=== PATIENT | male | born 1945 | race American Indian/Alaskan Native ===

== ENCOUNTER 2017-06-25 20:05 | Emergency (ER) | payer MEDICARE, OTHER ==
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
[2017-06-25 20:50] LABS: Basophils % (Auto) 0.7 % (0.0-1.8); Eosinophils % (Auto) 6.5 % (0.0-4.3); Hematocrit 44.3 % (35.5-45.6); Hemoglobin 14.7 gm/dl (11.8-15.2); Mean Corpuscular HGB Conc 33 % (32-34); Mean Corpuscular Hemoglobin 27 pg (28-32); Mean Corpuscular Volume 81 fl (84-94); Platelet Count 127 K/mm3 (140-440); Red Blood Count 5.49 M/mm3 (3.65-5.03); Red Cell Distribution Width 13.4 % (13.2-15.2); White Blood Count 7.4 K/mm3 (4.5-11.0)
[2017-06-25 21:00] LABS: INR 0.99 (0.87-1.13)
--- NOTE | 2017-06-25 21:03 | Cat Scan Report ---
FINAL REPORT EXAM: CT HEAD/BRAIN WO CON HISTORY: neuro deficits \T\lt; 6hrs or sx present upon awakening TECHNIQUE: Noncontrast CT axial images of the brain. PRIORS: None. FINDINGS: No parenchymal mass, mass effect, hemorrhage, midline shift or hydrocephalus. No evidence of acute cortical infarct. No abnormal, extra-axial fluid or air collection. Mild, patchy low density in the periventricular and subcortical white matter is nonspecific, but may relate to chronic small vessel ischemic change. Age-related volume loss. Osseous calvarium grossly intact. IMPRESSION: 1. No acute intracranial findings. 2. Chronic ischemic and atrophic changes.
[2017-06-25 21:05] LABS: Anion Gap 16 mmol/L; BUN/Creatinine Ratio 15; Blood Urea Nitrogen 17 mg/dL (9-20); Calcium 9.2 mg/dL (8.4-10.2); Carbon Dioxide 25 mmol/L (22-30); Chloride 100.1 mmol/L (98-107); Glucose 145 mg/dL (75-100); Partial Thromboplastin Time 28.1 Sec. (24.2-36.6); Sodium 137 mmol/L (137-145)
[2017-06-25 22:31] LABS: Creatine Kinase MB 2.4 ng/mL (0.0-4.0)
[2017-06-25 22:32] LABS: Creatine Kinase 101 units/L (55-170)
[2017-06-25] MEDS ORDERED: NACL 0.9% 500 ML 500 ML IV ONE (22:47)
[2017-06-25] MEDS ORDERED: ASPIRIN ONE (23:18)
[2017-06-26] MEDS ORDERED: ASPIRIN PO ONE (00:25)
[2017-06-26] MEDS ORDERED: BABY ASPIRIN PO ONE (00:40)
[2017-06-26 01:26] VITALS: BP 100/72
== END 2017-06-26 01:05 | disposition admitted as inpatient to this hospital (09) ==
LOC: ED 20:05
DX: I63.9 Cerebral infarction, unspecified (principal); I95.0 Idiopathic hypotension; I10 Essential (primary) hypertension; E11.9 Type 2 diabetes mellitus without complications; Z88.8 Allergy status to other drugs, medicaments and biological substances; V76 Bus occupant injured in collision with other nonmotor vehicle; Y93.89 Activity, other specified; Y92.89 Other specified places as the place of occurrence of the external cause; Y99.8 Other external cause status
CPT/HCPCS: 36415; 70450; 80048; 82550; 82553; 82962; 84484; 85025; 85610; 85670; 85730; 93005; 93010

== ENCOUNTER 2018-02-21 21:21 | Inpatient (IN) | payer MEDICARE, OTHER ==
[2018-02-21] MEDS ORDERED: NACL 0.9% 250ML 250 ML IV ONE (22:10)
--- NOTE | 2018-02-21 22:17 | Emergency Department Report ---
ED Neuro Deficit HPI - General Chief Complaint: Neuro Symptoms/Deficit Stated Complaint: GENERAL ILLNESS Time Seen by Provider: 02/21/18 22:01 Source: patient, EMS (ems notes not available at time of chart dictation), RN notes reviewed, old records reviewed Mode of arrival: Stretcher Limitations: Physical Limitation - History of Present Illness Initial Comments: This is a 72-year-old male, known to this provider previously, has a past medical history of thrombocytopenia, diabetes, bradycardia, hypertension, right MCA territory stroke, chronic left-sided weakness, currently on xarelto The patient presents to the ER with a complaint of not feeling well. He is not sure what time it started. He is not sure if this started at 4:00 PM or 8:00 PM today. He reports nausea, weakness, abdominal cramping, and binocular loss of vision. His symptoms are constant, and he did not have exacerbating or relieving factors. -: Gradual Location: other (as per history of present illness) Severity: moderate Quality: weak Improves With: none Worsens With: time On Anticoagulants: Yes Associated Symptoms: confusion, loss of appetite, malise, nausea/vomiting, weakness. denies: chest pain, cough, diaphoresis - Related Data Home Medications: Previous Rx's Medication Instructions Recorded Last Taken Type Clopidogrel [Plavix] 75 mg PO QDAY #30 tablet 06/29/17 Unknown Rx Simvastatin [Zocor TAB] 20 mg PO QHS #30 tablet 06/29/17 Unknown Rx Allergies/Adverse Reactions: Allergies Allergy/AdvReac Type Severity Reaction Status Date / Time iodine AdvReac Unknown Verified 06/26/17 09:37 ED Review of Systems ROS: Stated complaint: GENERAL ILLNESS Other details as noted in HPI Comment: Unobtainable due to pts medical conditions Constitutional: malaise Eyes: vision change ENT: denies: epistaxis Respiratory: denies: cough Cardiovascular: denies: chest pain Gastrointestinal: abdominal pain Genitourinary: denies: dysuria Neurological: weakness, confusion ED Past Medical Hx - Past Medical History Previous Medical History?: Yes Hx Hypertension: Yes Hx CVA: Yes Hx Diabetes: Yes - Surgical History Past Surgical History?: Yes Hx Coronary Stent: Yes Additional Surgical History: Right leg, cardiac stent - Social History Smoking Status: Never Smoker Substance Use Type: None - Medications Home Medications: Home Medications Medication Instructions Recorded Confirmed Last Taken Type Clopidogrel [Plavix] 75 mg PO QDAY #30 tablet 06/29/17 Unknown Rx Simvastatin [Zocor TAB] 20 mg PO QHS #30 tablet 06/29/17 Unknown Rx ED Neuro Physical Exam - General Limitations: No Limitations, Physical Limitation General appearance: alert, in no apparent distress Suspected Stroke: Yes - Head Head exam: Present: atraumatic, normocephalic - Eye Eye exam: Present: normal appearance, PERRL, other (extraocular movements are intact in the left eye. The right eye can adduct, elevate, depress, and the patient can abduction of right eye to midline, but not past midline.). Absent: nystagmus - ENT ENT exam: Present: mucous membranes moist - Neck Neck exam: Present: normal inspection, full ROM. Absent: tenderness, meningismus - Respiratory Respiratory exam: Present: normal lung sounds bilaterally. Absent: respiratory distress - Cardiovascular Cardiovascular Exam: Present: normal rhythm, irregular rhythm, normal heart sounds. Absent: systolic murmur, diastolic murmur, rubs, gallop - GI/Abdominal GI/Abdominal exam: Present: soft, normal bowel sounds. Absent: distended, tenderness, guarding, rebound, rigid, pulsatile mass - Rectal Rectal exam: Present: deferred - Extremities Exam Extremities exam: Present: normal inspection, full ROM, normal capillary refill. Absent: pedal edema, joint swelling, calf tenderness - Back Exam Back exam: Present: normal inspection, full ROM. Absent: tenderness, CVA tenderness (R), paraspinal tenderness, vertebral tenderness - Neurological Exam Neurological exam: Present: alert, oriented X3, motor sensory deficit (there is 4-5 strength left upper, left lower extremity sensation is intact to light touch in the bilateral upper, lower extremities. There is 5 out of 5 strength right upper, right lower extremity.). Absent: CN II-XII intact (there is no facial droop. The tongue is midline. Left-sided extraocular movements are intact bilaterally. Shoulder shrug is intact bilaterally. Normal symmetric elevation of the palate.) - NIHSS Assessment Interval: Baseline 1a. Level of Consciousness: alert 1b. LOC Questions: answers correctly 1c. LOC Commands: performs tasks correctly 2. Best Gaze: partial gaze palsy 3. Visual: no visual loss 4. Facial Palsy: normal symmetrical movement 5b. Motor Arm Right: no drift 5a. Motor Arm Left: no drift 6a. Motor Leg Left: no drift 6b. Motor Leg Right: no drift 7. Limb Ataxia: absent 8. Sensory: normal 9. Best Language: no aphasia 10. Dysarthria: normal 11. Extinction/Inattention: visual/tactile inattention Total Score: 2 Stroke Severity: Minor Stroke - Psychiatric Psychiatric exam: Present: anxious - Skin Skin exam: Present: warm, dry, intact, normal color. Absent: rash ED Course Vital Signs 02/21/18 02/21/18 02/21/18 21:50 22:00 22:15 Temperature 98.2 F 98.4 F Pulse Rate 65 77 76 Respiratory 20 20 20 Rate Blood Pressure 188/92 Blood Pressure 188/92 181/74 [Left] O2 Sat by Pulse 100 99 98 Oximetry 02/21/18 02/21/18 02/21/18 23:00 23:15 23:45 Temperature Pulse Rate 72 72 61 Respiratory 16 16 16 Rate Blood Pressure Blood Pressure 158/95 158/95 150/87 [Left] O2 Sat by Pulse 97 97 96 Oximetry - Reevaluation(s) Reevaluation #1: 02/21/18 23:07 Differential diagnosis, including but not limited to: Subacute stroke, thrombosis, dissection, partial seizure, pneumonia, urinary tract infection Assessment and plan: 72-year-old male presenting with an initial complaint of not feeling well and nonspecific visual disturbance. His timeline is erratic. He thinks that his symptoms started at 8:00 on my interview. However, he was seen by consulting stroke neurology, Dr. Blanton, and he told Dr. Blanton that his symptoms started at 4:00. The patient presented more than 4.5 hours after the 4:00 window, and is therefore not TPA candidate. In addition, given the patient's unreliability of historical onset of symptoms, he is also excluded from TPA. Furthermore, while in CAT scan he is reported to have a seizure, and then after CAT scan, under my direct supervision, had nonspecific left-sided myoclonic jerking, and a left-sided gaze preference, suggestive of a partial seizure. He then informed nursing staff and consult neurology Dr. Blanton that he has a history of seizures and takes Keppra. Consult neurology recommends emergent CT angiogram of the head and neck to exclude arterial disease. Patient having active partial seizures at this time, and therefore requires a emergent study. He will be given Ativan 2, Keppra IV 1, and we will reassess. Urinalysis x- ray of the chest are pending at this time. 02/21/18 23:08 Reevaluation #2: 02/21/18 23:41 Still having eye twitching and myoclonic jerks. Symptoms terminated with 5 mg of Versed. Angiogram is pending. Reevaluation #3: 02/22/18 02:04 The patient has been reassessed multiple times after Versed administration. No additional myoclonic jerks have been noted. No clonic jerking has been noted of the eyes. The angiogram did not demonstrate any significant arterial disease that would require transfer for endovascular intervention or neurosurgical consultation. Patient is still postictal and sleepy. He will be given rectal aspirin. Case was presented to the Hospital physician, Dr. Quinn, she accepted the patient to the medical service. - Lab Data Result diagrams: 02/21/18 22:21 02/21/18 22:21 Lab Results 02/21/18 02/21/18 02/21/18 Range/Units 22:17 22:21 22:21 WBC 7.7 (4.5-11.0) K/mm3 RBC 4.71 (3.65-5.03) M/mm3 Hgb 12.7 (11.8-15.2) gm/dl Hct 38.7 (35.5-45.6) % MCV 82 L (84-94) fl MCH 27 L (28-32) pg MCHC 33 (32-34) % RDW 14.2 (13.2-15.2) % Plt Count 107 L (140-440) K/mm3 Lymph % (Auto) 17.3 (13.4-35.0) % [place] % (Auto) 7.7 H (0.0-7.3) % Eos % (Auto) 3.4 (0.0-4.3) % Baso % (Auto) 1.3 (0.0-1.8) % Lymph # 1.3 (1.2-5.4) K/mm3 [place] # 0.6 (0.0-0.8) K/mm3 Eos # 0.3 (0.0-0.4) K/mm3 Baso # 0.1 (0.0-0.1) K/mm3 Seg Neutrophils % 70.3 H (40.0-70.0) % Seg Neutrophils # 5.4 (1.8-7.7) K/mm3 PT 13.7 (12.2-14.9) Sec. INR 1.00 (0.87-1.13) APTT 26.9 (24.2-36.6) Sec. Thrombin Time 16.5 (15.1-19.6) Sec. Sodium (137-145) mmol/L Potassium (3.6-5.0) mmol/L Chloride (98-107) mmol/L Carbon Dioxide (22-30) mmol/L Anion Gap mmol/L BUN (9-20) mg/dL Creatinine (0.8-1.5) mg/dL Estimated GFR ml/min BUN/Creatinine Ratio % Glucose (75-100) mg/dL POC Glucose 100 (70-105) Calcium (8.4-10.2) mg/dL Total Bilirubin (0.1-1.2) mg/dL AST (5-40) units/L ALT (7-56) units/L Alkaline Phosphatase (35-129) units/L Total Creatine Kinase (55-170) units/L CK-MB (CK-2) (0.0-4.0) ng/mL CK-MB (CK-2) Rel Index (0-4) Troponin T (0.00-0.029) ng/mL Total Protein (6.3-8.2) g/dL Albumin (3.9-5) g/dL Albumin/Globulin Ratio % Urine Color (Yellow) Urine Turbidity (Clear) Urine pH (5.0-7.0) Ur Specific [place] (1.003-1.030) Urine Protein (Negative) mg/dL Urine Glucose (UA) (Negative) mg/dL Urine Ketones (Negative) mg/dL Urine Blood (Negative) Urine Nitrite (Negative) Urine Bilirubin (Negative) Urine Urobilinogen (<2.0) mg/dL Ur Leukocyte Esterase (Negative) Urine WBC (Auto) (0.0-6.0) /HPF Urine RBC (Auto) (0.0-6.0) /HPF Urine Opiates Screen Urine Methadone Screen Ur Barbiturates Screen Ur Phencyclidine Scrn Ur Amphetamines Screen U Benzodiazepines Scrn Urine Cocaine Screen U Marijuana (THC) Screen Drugs of Abuse Note 02/21/18 02/21/18 02/21/18 Range/Units 22:21 23:51 23:51 WBC (4.5-11.0) K/mm3 RBC (3.65-5.03) M/mm3 Hgb (11.8-15.2) gm/dl Hct (35.5-45.6) % MCV (84-94) fl MCH (28-32) pg MCHC (32-34) % RDW (13.2-15.2) % Plt Count (140-440) K/mm3 Lymph % (Auto) (13.4-35.0) % [place] % (Auto) (0.0-7.3) % Eos % (Auto) (0.0-4.3) % Baso % (Auto) (0.0-1.8) % Lymph # (1.2-5.4) K/mm3 [place] # (0.0-0.8) K/mm3 Eos # (0.0-0.4) K/mm3 Baso # (0.0-0.1) K/mm3 Seg Neutrophils % (40.0-70.0) % Seg Neutrophils # (1.8-7.7) K/mm3 PT (12.2-14.9) Sec. INR (0.87-1.13) APTT (24.2-36.6) Sec. Thrombin Time (15.1-19.6) Sec. Sodium 138 (137-145) mmol/L Potassium 3.6 (3.6-5.0) mmol/L Chloride 100.4 (98-107) mmol/L Carbon Dioxide 26 (22-30) mmol/L Anion Gap 15 mmol/L BUN 5 L (9-20) mg/dL Creatinine 0.7 L (0.8-1.5) mg/dL Estimated GFR > 60 ml/min BUN/Creatinine Ratio 7 % Glucose 95 (75-100) mg/dL POC Glucose (70-105) Calcium 8.8 (8.4-10.2) mg/dL Total Bilirubin 0.30 (0.1-1.2) mg/dL AST 20 (5-40) units/L ALT 14 (7-56) units/L Alkaline Phosphatase 51 (35-129) units/L Total Creatine Kinase 59 (55-170) units/L CK-MB (CK-2) 1.5 (0.0-4.0) ng/mL CK-MB (CK-2) Rel Index 2.5 (0-4) Troponin T < 0.010 (0.00-0.029) ng/mL Total Protein 6.8 (6.3-8.2) g/dL Albumin 3.8 L (3.9-5) g/dL Albumin/Globulin Ratio 1.3 % Urine Color Straw (Yellow) Urine Turbidity Clear (Clear) Urine pH 7.0 (5.0-7.0) Ur Specific [place] 1.006 (1.003-1.030) Urine Protein <15 mg/dl (Negative) mg/dL Urine Glucose (UA) Neg (Negative) mg/dL Urine Ketones Neg (Negative) mg/dL Urine Blood Neg (Negative) Urine Nitrite Neg (Negative) Urine Bilirubin Neg (Negative) Urine Urobilinogen < 2.0 (<2.0) mg/dL Ur Leukocyte Esterase Neg (Negative) Urine WBC (Auto) < 1.0 (0.0-6.0) /HPF Urine RBC (Auto) < 1.0 (0.0-6.0) /HPF Urine Opiates Screen Presumptive negative Urine Methadone Screen Presumptive negative Ur Barbiturates Screen Presumptive negative Ur Phencyclidine Scrn Presumptive negative Ur Amphetamines Screen Presumptive negative U Benzodiazepines Scrn Presumptive negative Urine Cocaine Screen Presumptive negative U Marijuana (THC) Screen Presumptive negative Drugs of Abuse Note Disclamer - EKG Data -: EKG Interpreted by Ok 02/21/18 23:10 EKG shows sinus bradycardia, premature ventricular contractions, left axis, low voltage, abnormal EKG, not a STEMI, multiple premature ventricular contractions. - Radiology Data Radiology results: report reviewed - Core Measures Measure Exclusions: not indicated - Thrombolytic Inclusion/Exclusion Thrombolytic Exclusion Criteria: Symptom Onset > 3 Hours Critical Care Time: Yes Critical care time in (mins) excluding proc time.: 60 Critical care attestation.: If time is entered above; I have spent that time in minutes in the direct care of this critically ill patient, excluding procedure time. ED Disposition Clinical Impression: Visual disturbance, Partial seizure Disposition: [id number] OP ADMIT IP TO THIS HOSP Is pt being admited?: Yes Does the pt Need Aspirin: Yes Condition: Critical Referrals: PRIMARY CARE, [Primary Care Provider] - 3-5 Days
[2018-02-21 22:27] LABS: Basophils # (Auto) 0.1 K/mm3 (0.0-0.1); Basophils % (Auto) 1.3 % (0.0-1.8); Eosinophils # (Auto) 0.3 K/mm3 (0.0-0.4); Eosinophils % (Auto) 3.4 % (0.0-4.3); Hematocrit 38.7 % (35.5-45.6); Hemoglobin 12.7 gm/dl (11.8-15.2); Lymphocytes # (Auto) 1.3 K/mm3 (1.2-5.4); Lymphocytes % (Auto) 17.3 % (13.4-35.0); Mean Corpuscular HGB Conc 33 % (32-34); Mean Corpuscular Hemoglobin 27 pg (28-32); Mean Corpuscular Volume 82 fl (84-94); Monocytes # (Auto) 0.6 K/mm3 (0.0-0.8); Monocytes % (Auto) 7.7 % (0.0-7.3); Red Blood Count 4.71 M/mm3 (3.65-5.03); Red Cell Distribution Width 14.2 % (13.2-15.2)
[2018-02-21 22:30] LABS: Platelet Count 107 K/mm3 (140-440)
[2018-02-21 22:38] LABS: Partial Thromboplastin Time 26.9 Sec. (24.2-36.6); Thrombin Time 16.5 Sec. (15.1-19.6)
--- NOTE | 2018-02-21 22:41 | Cat Scan Report ---
FINAL REPORT PROCEDURE: CT HEAD/BRAIN WO CON TECHNIQUE: Computerized tomography of the head was performed without contrast material. HISTORY: Stroke symptoms COMPARISON: 06/25/2017 FINDINGS: Skull and scalp: Normal. Paranasal sinuses: Normal. Ventricles and subarachnoid spaces: Normal. Cerebrum: There is no evidence of an acute intracranial hemorrhage, hematoma, infarction, midline displacement or mass. There is an area of hypoattenuation identified in the right temporal lobe consistent with old infarction. Mild atrophy and slight periventricular deep white matter changes are noted.. Cerebellum and brainstem: No evidence of hemorrhage, acute infarction or mass. Vasculature: Normal. Comments: None. IMPRESSION: There is no evidence of an acute intracranial process. Area of encephalomalacia and old infarction in the right temporal lobe. Mild atrophy and slight periventricular deep white matter change.
[2018-02-21] MEDS ORDERED: ATIVAN ONE ×2 (22:49→22:59)
[2018-02-21 22:55] LABS: Creatine Kinase MB 1.5 ng/mL (0.0-4.0)
[2018-02-21 22:56] LABS: Alanine Aminotransferase 14 units/L (7-56); Albumin 3.8 g/dL (3.9-5); BUN/Creatinine Ratio 7; Blood Urea Nitrogen 5 mg/dL (9-20); Calcium 8.8 mg/dL (8.4-10.2); Hemolysis Index 10
[2018-02-21] MEDS ORDERED: KEPPRA 1,000 MG/NS 0.75% 100ML 1,000 MG/100 ML BAG IV ONE ×2 (22:59→23:01)
[2018-02-21] MEDS ORDERED: CARDENE 50 MG in NACL 0.9% 250ML 230 ML IV SCH (23:00)
[2018-02-21] MEDS ORDERED: ATIVAN IV ONE (23:01)
[2018-02-21] MEDS ORDERED: VERSED IV ONE (23:23)
[2018-02-21] MEDS ORDERED: VERSED IV NR (23:45)
[2018-02-22 00:10] LABS: Bilirubin,Urine NEG (Negative); Blood,Urine NEG (Negative); Color,Urine Straw (Yellow); Protein,Urine <15 mg/dL mg/dL (Negative); RBC,Urine < 1.0 /HPF (0.0-6.0); Urobilinogen,Urine < 2.0 mg/dL (<2.0); WBC,Urine < 1.0 /HPF (0.0-6.0)
--- NOTE | 2018-02-22 00:11 | XRay Report ---
FINAL REPORT PROCEDURE: XR CHEST 1V AP TECHNIQUE: Chest radiograph anteroposterior view. CPT 32861 HISTORY: sz ? pneumonia COMPARISON: No prior studies are available for comparison. FINDINGS: Heart: Normal. Mediastinum/Vessels: Normal. Lungs/Pleural space: Normal. Bony thorax: No acute osseous abnormality. Life support devices: None. IMPRESSION: No acute cardiopulmonary abnormality.
[2018-02-22 00:20] LABS: Amphetamine Screen,Urine PRESUMPTIVE NEGATIVE; Benzodiazepines Screen,Urine PRESUMPTIVE NEGATIVE; Cannabinoid Screen,Urine PRESUMPTIVE NEGATIVE; Cocaine Screen,Urine PRESUMPTIVE NEGATIVE; Methadone Screen,Urine PRESUMPTIVE NEGATIVE; Opiate Screen,Urine PRESUMPTIVE NEGATIVE
--- NOTE | 2018-02-22 01:45 | Cat Scan Report ---
FINAL REPORT PROCEDURE: CT ANGIO HEAD TECHNIQUE: Computerized tomographic angiography of the head was performed after the IV injection of iodinated nonionic contrast including image processing. The image data was postprocessed using 2-dimensional multiplanar reformatted (MPR) and 3-dimensional (MIP and/or volume rendered) techniques. HISTORY: stroke sx COMPARISON: No prior studies are available for comparison. FINDINGS: Cerebrum: There is evidence of an area of encephalomalacia in the right temporal lobe most consistent with previous infarction. No acute intracranial process. Minimal atrophy is noted. Cerebellum: No evidence of hemorrhage, acute ischemia or mass. Subarachnoid spaces and ventricles: Normal. Intracranial vessels: Carotid siphon: Normal. Anterior cerebral: Normal. Middle cerebral: Normal. Posterior cerebral:Normal. Vertebral arteries including basilar: The left vertebral artery is dominant. This is a normal variant. Aneurysms: None. Dural sinuses: Normal. IMPRESSION: There is an old infarction in the right temporal lobe. No evidence of an acute intracranial process. Mild atrophy is noted. The left vertebral artery is dominant, this is a normal variant. The remainder of the vasculature is normal.
--- NOTE | 2018-02-22 01:48 | Cat Scan Report ---
FINAL REPORT PROCEDURE: CT ANGIO NECK TECHNIQUE: Computerized tomographic angiography of the neck was performed after the IV injection of iodinated nonionic contrast including image processing. The image data was postprocessed using 2-dimensional multiplanar reformatted (MPR) and 3-dimensional (MIP and/or volume rendered) techniques. HISTORY: stroke sx COMPARISON: No prior studies are available for comparison. Note: Assessment of carotid artery stenosis is based on measurement of the distal internal carotid artery diameter as the denominator for stenosis calculations and the [place] Symptomatic Carotid Endarterectomy Trial (NASCET) stenosis criteria . CPT 3100F FINDINGS: Sinuses: Normal . Non vascular cervical structures: No significant abnormality . Aortic arch: Normal . Right carotid artery: Normal . Left carotid artery: Normal . Vertebral arteries: The left vertebral artery is dominant. This is a normal variant.. IMPRESSION: Normal Examination
[2018-02-22] MEDS ORDERED: ASPIRIN PR ONE (02:05)
[2018-02-22] MEDS ORDERED: SODIUM CHLORIDE FLUSH SYRINGE 10 ML IV PRN (03:00)
[2018-02-22] MEDS ORDERED: ZOFRAN IV PRN (03:00)
[2018-02-22] MEDS ORDERED: TYLENOL PO PRN ×2 (03:00→03:05)
--- NOTE | 2018-02-22 03:02 | History and Physical Report ---
History of Present Illness Date of examination: 02/22/18 History of present illness: 72 year old man with history of CVA, seizure, hypertension, diabetes comes to the ER for evaluation of vision loss per the ER doctor. The patient came in as a code stroke and after CT head, he was noted to have a seizure. he was given 4mg ativan and 5 mg versed. he is now sedated. A review of system is unobtainable PAST MEDICAL HISTORY: CVA, seizure, hypertension, diabetes PAST SURGICAL HISTORY: Unknown SOCIAL HISTORY: Unknown FAMILY HISTORY: Unknown Medications and Allergies Allergies Allergy/AdvReac Type Severity Reaction Status Date / Time iodine AdvReac Unknown Verified 06/26/17 09:37 Home Medications Medication Instructions Recorded Confirmed Last Taken Type Aspirin [Adult Low Dose Aspirin EC] 81 mg PO DAILY #30 tablet. 02/23/18 Unknown Rx Pantoprazole [Protonix TAB] 40 mg PO QDAY #30 tablet 02/23/18 Unknown Rx Rivaroxaban [Xarelto] 10 mg PO QDAY #30 tab 02/23/18 Unknown Rx Simvastatin [Zocor TAB] 40 mg PO QHS #30 tablet 02/23/18 02/22/18 Unknown Rx levETIRAcetam [Keppra TAB] 750 mg PO BID #60 tablet 02/23/18 Unknown Rx Active Meds: Active Medications Midazolam HCl (Versed) 5 mg IV ONCE NR Stop: 02/22/18 23:44 Last Admin: 02/22/18 00:00 Dose: 5 mg Exam - Physical Exam Narrative exam: Gen. appearance: Patient lying in bed, no apparent distress HEENT: Normocephalic, atraumatic, pupils equally round and reactive to light, unable to do extraocular movement , and no sclericterus,. No JVD or thyromegaly or nodule,neck supple, no carotid bruit ,mucous membranes moist, unable to examine oral cavity Heart: S1, S2, regular rate and rhythm Lungs: Wheezing auscultation bilaterally, breathing comfortable Abdomen: Positive bowel sounds, soft, nondistended, no organomegaly Extremity: No edema, no cyanosis, clubbing Skin: No rash, nodules, warm, dry Neuro: sedated - Constitutional Vitals: Temp Pulse Resp BP Pulse Ox 98.4 F 52 L 11 L 154/79 100 02/21/18 22:00 02/22/18 02:15 02/22/18 02:15 02/22/18 02:15 02/22/18 02:15 Results - Labs CBC & Chem 7: 02/23/18 12:50 02/23/18 04:54 Labs: Abnormal lab results 02/21/18 02/21/18 Range/Units 22:21 22:21 MCV 82 L (84-94) fl MCH 27 L (28-32) pg Plt Count 107 L (140-440) K/mm3 [place] % (Auto) 7.7 H (0.0-7.3) % Seg Neutrophils % 70.3 H (40.0-70.0) % BUN 5 L (9-20) mg/dL Creatinine 0.7 L (0.8-1.5) mg/dL Albumin 3.8 L (3.9-5) g/dL - Imaging and Cardiology Chest x-ray: report reviewed CT Scan - head: report reviewed Assessment and Plan CTA head and neck reviewed Assessment CVA, acute seizue, acute on chronic Hypertension Diabetes Thrombocytopenia Plan Admit to medicine Obatain MR of head, echo Do neurochecks, check fingersticks Consult neurology, PT/OT IV ativan as needed for seizure Start plavix, statin, DVT prophalaxis
[2018-02-22] MEDS ORDERED: DULCOLAX PR PRN (03:05)
[2018-02-22] MEDS ORDERED: SODIUM CHLORIDE FLUSH SYRINGE 10 ML INJ PRN (03:05)
[2018-02-22] MEDS ORDERED: MILK OF MAGNESIA PO PRN (03:05)
[2018-02-22] MEDS ORDERED: ATIVAN IV PRN (04:40)
[2018-02-22] MEDS: ASPIRIN PO SCH (09:56)
[2018-02-22] MEDS: PLAVIX PO SCH (09:56)
[2018-02-22] MEDS ORDERED: LOVENOX SUB-Q SCH (10:00)
--- NOTE | 2018-02-22 10:57 | Consultation ---
History of Present Illness Consult date: 02/22/18 Requesting physician: VALERIO BARBER Reason for Consult: CVA and seizure. Chief complaint: Blurry vision and seizure. History of present illness: 72-year-old male, right handed male with a past medical history of thrombocytopenia, diabetes, bradycardia, hypertension, right MCA territory stroke, chronic left-sided weakness. The patient presents to the ER with a complaint of not feeling well. He is not sure what time it started He reports nausea, weakness, abdominal cramping, and binocular loss of vision. His symptoms are constant, and he did not have exacerbating or relieving factors. When he was in the ER, he developed a seizure. Ativan was given and right now he is still effects of Ativan, not fully oriented. 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 He was diagnosed seizure 2 months ago. So far 2-3 seizures. It is unclear what type seizure he has. Only seizure medicine he used was keppra. Past History Past Medical History: diabetes, hypertension, hyperlipidemia, seizures, stroke Social history: no significant social history Family history: hypertension Medications and Allergies Allergies Allergy/AdvReac Type Severity Reaction Status Date / Time iodine AdvReac Unknown Verified 06/26/17 09:37 Home Medications Medication Instructions Recorded Confirmed Last Taken Type Clopidogrel [Plavix] 75 mg PO QDAY #30 tablet 06/29/17 Unknown Rx Simvastatin [Zocor TAB] 20 mg PO QHS #30 tablet 06/29/17 Unknown Rx Active Meds: Active Medications Acetaminophen (Tylenol) 650 mg PO Q4H PRN PRN Reason: Pain MILD(1-3)/Fever >100.5/JULIEN Aspirin (Aspirin) 325 mg PO QDAY ZACH Bisacodyl (Dulcolax) 10 mg AR QDAY PRN PRN Reason: Constipation Clopidogrel Bisulfate (Plavix) 75 mg PO QDAY ZACH Lorazepam (Ativan) 2 mg IV Q4H PRN PRN Reason: Seizures Magnesium Hydroxide (Milk Of Magnesia) 30 ml PO Q4H PRN PRN Reason: Constipation Midazolam HCl (Versed) 5 mg IV ONCE NR Stop: 02/22/18 23:44 Last Admin: 02/22/18 00:00 Dose: 5 mg Ondansetron HCl (Zofran) 4 mg IV Q8H PRN PRN Reason: Nausea And Vomiting Pravastatin Sodium (Pravachol) 40 mg PO QHS ZACH Sodium Chloride (Sodium Chloride Flush Syringe 10 Ml) 10 ml IV BID ZACH Sodium Chloride (Sodium Chloride Flush Syringe 10 Ml) 10 ml IV PRN PRN PRN Reason: LINE FLUSH Review of Systems ROS unobtainable: due to mental status (Given Ativan when having seizure.) Physical Examination - Vital Signs Vital Signs: Vital Signs BP Pulse Ox 188/92 99 02/21/18 21:35 02/21/18 21:35 - Constitutional General appearance: comfortable - EENT EENT: Present: ATNC, PERRL - Respiratory Respiratory: Present: lungs clear, normal breath sounds - Cardiovascular Cardiovascular: Present: regular rate, no murmurs Extremities: Present: no peripheral edema bilatateraly, no clubbing, cyanosis - Gastrointestinal Gastrointestinal: Present: normoactive bowel sounds, soft - Integumentary Integumentary: Present: normal - Neurologic Cranial nerve examination: PERRL, EOMI, tongue midline, intact Speech examination: intact Sensorimotor examination: seizure Detailed motor examination: grossly full strength in Detailed sensory examination: intact Reflexes: 1+: ankle, bicep, knee, tricep - Psychiatric Psychiatric: Present: mood/affect appropriate - Assessment Assessment Interval: Baseline - Level of Consciousness 1a. Level of Consciousness: alert - LOC Questions 1b. LOC Questions: answers correctly - LOC Command 1c. LOC Commands: performs tasks correctly - Best Gaze 2. Best Gaze: partial gaze palsy - Visual 3. Visual: no visual loss - Facial Palsy 4. Facial Palsy: normal symmetrical movement - Motor Arm 5b. Motor Arm Right: no drift - Motor Leg 6a. Motor Leg Left: no drift - Limb Ataxia 7. Limb Ataxia: absent - Sensory 8. Sensory: normal - Best Language 9. Best Language: no aphasia - Dysarthria 10. Dysarthria: normal - Extinction and Inattention 11. Extinction/Inattention: visual/tactile inattention Results - Laboratory Findings CBC and BMP: 02/21/18 22:21 02/21/18 22:21 Abnormal Lab Findings: Abnormal Labs 02/21/18 02/21/18 22:21 22:21 MCV 82 L MCH 27 L Plt Count [address] [place] % (Auto) 7.7 H Seg Neutrophils % 70.3 H BUN 5 L Creatinine 0.7 L Albumin 3.8 L Assessment and Plan 1. H/O seizure and seizure break through. Continue Keppra. Ativan PRN. 2. New CVA as differential. Brain MRI without contrast. 3. Per ER physician, he has thrombocytopenia and on xarelto. Need previous medical information. 4. HTN. Permissive if less 180/105 until brain MRI clear or 48 hours. 5. Dyslipidemia. Statin. 6. DM. Medicine. 7. Don't drive a vehicle or operate heavy machinery for 6 months. Always seizure precaution. 8. Treat risk factors of CVA. If he was on Xarelto, continue Xarelto, D/C Plavix. Right now he is on Plavix. Platelet 107. 9. Plan discussed with him, his brother and hospitalist at bed side. 10. Will follow up with you. 11. If D/C, F/U with neurology in 4-6 weeks.
--- NOTE | 2018-02-22 14:17 | Event Note ---
Date: 02/22/18 Patient seen and examined this morning very lethargic and still sleepy was difficult to arouse. Neurology evaluated her this morning also. Most information obtained from family member was at bedside specifically brother who could not unfortunately provide much information. We'll continue current treatment await MRI and anticipate discharge in a.m. if remains stable.
--- NOTE | 2018-02-22 18:46 | Magnetic Resonance Report ---
FINAL REPORT EXAM: MR BRAIN WO CON HISTORY: stroke TECHNIQUE: Multiplanar multisequence noncontrast MR images of the brain were performed. Comparison: CT brain 02/21/2018 demonstrating right temporal encephalomalacia 6 defect, CT angio 02/22/2018 head and neck which were both normal FINDINGS: There is an old right encephalomalacia sick defect. There is no focal acute restricted diffusion. Sagittal FLAIR images demonstrate fully formed corpus callosum. Unremarkable sella turcica, colliculus, brainstem, and posterior fossa. Mild diffuse cortical atrophy. Mild left maxillary sinus mucosal thickening and ethmoid air cell mucosal thickening. Mild posterior right ethmoid air cell mucosal thickening. Incidentally noted cavum vergae E. Normal intracranial T2 flow voids with dominant left vertebral artery. The nasopharynx is unremarkable. Right mastoid effusion. Vestibular cochlear nerve sheath bundles and cerebellopontine angles are unremarkable. Optic chiasm and infundibulum are unremarkable. Periventricular white matter prolonged FLAIR signal intensity around the occipital horns of the lateral ventricles, right greater than left. Old encephalomalacia defect right temporal lobe. No acute intracranial blood products. Normal T2 flow voids of the imaged dural venous sinuses. Optic cones, orbital cones and apices are unremarkable. The right lens is absent. IMPRESSION: No acute restricted diffusion of ischemic infarct. No blood products. Old right encephalomalacia temporal defect. Presumably surgically absent right lens. Minimal periventricular occipital lobe white-matter ischemic demyelination. Normal flow voids intracranial arterial and dural venous sinuses. Significant right greater than left mastoid effusion. Mild ethmoid air cell mucosal thickening and minimal left maxillary sinus mucosal thickening.
[2018-02-22] MEDS ORDERED: PRAVACHOL PO SCH ×2 (22:00)
[2018-02-22] MEDS: KEPPRA PO SCH (22:41)
[2018-02-22] MEDS: SODIUM CHLORIDE FLUSH SYRINGE 10 ML IV SCH (22:42)
[2018-02-23 05:38] LABS: Basophils % (Auto) 0.9 % (0.0-1.8); Eosinophils # (Auto) 0.2 K/mm3 (0.0-0.4); Eosinophils % (Auto) 4.6 % (0.0-4.3); Hematocrit 38.9 % (35.5-45.6); Hemoglobin 12.7 gm/dl (11.8-15.2); Lymphocytes # (Auto) 1.5 K/mm3 (1.2-5.4); Lymphocytes % (Auto) 26.9 % (13.4-35.0); Mean Corpuscular HGB Conc 33 % (32-34); Mean Corpuscular Hemoglobin 27 pg (28-32); Mean Corpuscular Volume 83 fl (84-94); Monocytes # (Auto) 0.5 K/mm3 (0.0-0.8); Monocytes % (Auto) 9.1 % (0.0-7.3); Platelet Count 122 K/mm3 (140-440); Red Blood Count 4.71 M/mm3 (3.65-5.03)
[2018-02-23 06:59] LABS: BUN/Creatinine Ratio 8; Blood Urea Nitrogen 5 mg/dL (9-20); Calcium 8.8 mg/dL (8.4-10.2); Chol/HDL Ratio 2.63 %; HDL Cholesterol 61 mg/dL (40-59); Hemolysis Index 13; LDL Cholesterol,Direct 97 mg/dL (50-130)
[2018-02-23] MEDS: KEPPRA PO SCH (10:35)
[2018-02-23] MEDS: SODIUM CHLORIDE FLUSH SYRINGE 10 ML IV SCH ×2 (10:35→10:36)
[2018-02-23] MEDS: PLAVIX PO SCH (10:35)
[2018-02-23] MEDS: ASPIRIN PO SCH (10:35)
--- NOTE | 2018-02-23 11:04 | Discharge Summary ---
Providers - Providers Date of Admission: 02/22/18 03:01 Attending physician: VALERIO BARBER MD 02/22/18 Consult to Physician [CONS] Routine Comment: Consulting Provider: MARLENA ISAAC Physician Instructions: Reason For Exam: visual disturbnce 02/22/18 03:05 Occupational Therapy Evaluate and Treat [CONS] Routine Comment: Reason For Exam: Neuro deficits Physical Therapy Evaluation and Treat [CONS] Routine Comment: Reason For Exam: Neuro deficits Primary care physician: CORRAL BOSS Hospitalization Condition: Stable Hospital course: 1. H/O seizure and seizure break through. Continue Keppra. Ativan PRN. 2. New CVA as differential. Brain MRI without contrast. 3. Per ER physician, he has thrombocytopenia and on xarelto. Need previous medical information. 4. HTN. Permissive if less 180/105 until brain MRI clear or 48 hours. 5. Dyslipidemia. Statin. 6. DM. Medicine. 7. Don't drive a vehicle or operate heavy machinery for 6 months. Always seizure precaution. 8. Treat risk factors of CVA. If he was on Xarelto, continue Xarelto, D/C Plavix. Right now he is on Plavix. Platelet 107. 9. Plan discussed with him, his brother and hospitalist at bed side. 10. Will follow up with you. 11. If D/C, F/U with neurology in 4-6 weeks. Disposition: [id number] HOME UNDER HOME [facility] Time spent for discharge: 35 mins Core Measure Documentation - Palliative Care Palliative Care/ Comfort Measures: Not Applicable - Core Measures Any of the following diagnoses?: none - VTE Discharge Requirements Deep Vein Thrombosis/Pulmonary Embolism Present on Admission: No Exam - Constitutional Vitals: Temp Pulse Resp BP Pulse Ox 97.9 F 55 L 18 138/71 99 02/23/18 07:34 02/23/18 07:34 02/23/18 07:34 02/23/18 07:34 02/23/18 07:34 General appearance: Present: no acute distress, well-nourished - EENT Eyes: Present: PERRL, EOM intact - Neck Neck: Present: supple, normal ROM - Respiratory Respiratory effort: normal Respiratory: bilateral: CTA - Cardiovascular Heart Sounds: Present: S1 & S2 - Extremities Extremities: no ischemia, pulses intact, No edema, Full ROM Peripheral Pulses: within normal limits - Abdominal General gastrointestinal: Present: soft, non-tender, non-distended Male genitourinary: Present: normal - Integumentary Integumentary: Present: clear, warm, dry - Musculoskeletal Musculoskeletal: strength equal bilaterally - Psychiatric Psychiatric: appropriate mood/affect - Neurologic Neurologic: CNII-XII intact, moves all extremities - Allied Health Allied health notes reviewed: nursing Plan Activity: no driving until cleared by PCP (according [place] law until seen by pcp), fall precautions Diet: low fat Special Instructions: record daily BP diary, record blood sugar diary Additional Instructions: repeat platelet study with pcp in 3-5 days Follow up with: PRIMARY CAREMD [Primary Care Provider] - 3-5 Days ROSALIND EUCEDA MD [Staff Physician] - 7 Days Prescriptions: Aspirin [Adult Low Dose Aspirin EC] 81 mg PO DAILY #30 tablet. levETIRAcetam [Keppra TAB] 750 mg PO BID #60 tablet Pantoprazole [Protonix TAB] 40 mg PO QDAY #30 tablet Rivaroxaban [Xarelto] 10 mg PO QDAY #30 tab
--- NOTE | 2018-02-23 11:27 | Progress Note ---
Assessment and Plan 1. H/O seizure and seizure break through. Probably focal seizure with conscious impairment and secondary general from encephalomalasia. Increase Keppra to 750 mg bid. Ativan PRN. 2. Brain MRI without contrast, no new CVA, right temporal encephalomalasia. CTA head and neck, no significant stenosis . 3. HTN. Can optimize. 4. CAD, S/P stents. Cardiology. 5. Dyslipidemia. Statin. 6. DM. Medicine. 7. Don't drive a vehicle or operate heavy machinery for 6 months. Always seizure precaution. 8. Treat risk factors of CVA. If he was on Xarelto, continue Xarelto. If no anticoagulant, should have antiplatelet and closely watching platelets. 9. Plan discussed with him, his brother and hospitalist at bed side. 10. Will follow up with you PRN. 11. If D/C, F/U with neurology in 4-6 weeks. Subjective Date of service: 02/23/18 Principal diagnosis: Seizure. Interval history: No seizure, still not fully oriented. Objective - Vital Sign Vital Signs - 12hr 02/22/18 02/23/18 02/23/18 23:55 04:41 05:07 Temperature 98.3 F Pulse Rate 54 L 54 L 50 L Respiratory 20 Rate Blood Pressure 141/67 Blood Pressure 154/78 [Left] O2 Sat by Pulse 97 100 Oximetry 02/23/18 07:34 Temperature 97.9 F Pulse Rate 55 L Respiratory 18 Rate Blood Pressure 138/71 Blood Pressure [Left] O2 Sat by Pulse 99 Oximetry - General Apperance Constitutional: comfortable - EENT EENT: other (right eye blindness.) - Respiratory Respiratory: lungs clear, normal breath sounds - Cardiovascular Cardiovascular: regular rate, no murmurs - Gastrointestinal Gastrointestinal: soft, non-tender - Neurologic Cranial nerve examination: V1/V2/V3 grossly intact, other (right eye blindness. Rest CN II-XII intact.) Speech examination: intact Detailed motor examination: other (right leg 4/5, rest 5/5.) Detailed sensory examination: other (right leg decreased.) Reflexes: 1+: ankle, bicep, knee, tricep - Laboratory Findings CBC and BMP: 02/23/18 04:54 02/23/18 04:54 Abnormal Lab Findings: Abnormal Labs 02/21/18 02/21/18 02/22/18 22:21 22:21 13:00 MCV 82 L MCH 27 L Plt Count 107 L [place] % (Auto) 7.7 H Eos % (Auto) Seg Neutrophils % 70.3 H Potassium BUN 5 L Creatinine 0.7 L Glucose POC Glucose 68 L Albumin 3.8 L HDL Cholesterol 02/23/18 02/23/18 02/23/18 04:54 04:54 06:27 MCV 83 L MCH 27 L Plt Count 122 L [place] % (Auto) 9.1 H Eos % (Auto) 4.6 H Seg Neutrophils % Potassium 3.5 L BUN 5 L Creatinine 0.6 L Glucose 71 L POC Glucose 68 L Albumin HDL Cholesterol 61 H
--- NOTE | 2018-02-23 11:44 | Progress Note ---
Assessment and Plan Assessment and plan: patient is a 72 year old man with history of CVA, seizure, hypertension, diabetes comes to the ER for evaluation of vision loss per the ER doctor. The patient came in as a code stroke and after CT head, he was noted to have a seizure. he was given 4mg ativan and 5 mg versed. he is now sedated. Neurology was consulted, imaging studies showed encephalomalecia, echocardiogram revealed large left ventricular mural thrombus. patient was advised of the finding and started on Heparin drip bridge with coumadin therapy Seizure, acute on chronic Acute toxic encephalopathy Dilated Cardiomyopathy- EF 15-20% Large LV thrombus CAD hx of CT with stent Hypertension Diabetes Thrombocytopenia Plan Per cardiology documentation and explained to the patient "The patient has a dilated ischemic cardiomyopathy, with severe left ventricle systolic dysfunction, and a persistent large left ventricular mural thrombus. In addition, there is recurrent presentations with embolic CVA. I have strongly recommended that he resumes Coumadin therapy, with a target INR of 2.0-3.0. He is fully aware that level and blood thrombus puts him at very high risk of recurrent cardiac thromboembolism. He adamantly refuses Coumadin all other anticoagulation therapy. He wants to be maintained on Plavix alone." Start heparin drip and coumdin Plan to discharge on ASA and therapuetic coumadin Reguest records from Brain MRI without contrast, no new CVA, right temporal encephalomalasia Start on lisinopril 5 mg, carvedilol 6.25 mg, furosemide 20 mg, potassium 10 mEq. Follow with primary javascript application developer outpatient, or evaluation as a candidate for primary placement of an internal cardiac defibrillator. Increase keppra to 750mg po BID Continue DM management Outpatient neurology follow up No driving according to [place] law until cleared by Neurologist. Patient verbalized understanding. DVT/GI PROPHY History Interval history: patient seen and examined today, awake alert and oriented denies any chest pain , nausea vomiting. although he appears to have a good grasp of his medical hx, he gives different account. Hospitalist Physical - Physical exam Narrative exam: VITAL SIGNS: Reviewed. GENERAL: The patient appeared well nourished and normally developed. Vital signs as documented. HEAD: No signs of head trauma. EYES: Pupils are equal. Extraocular motions intact. EARS: Hearing grossly intact. MOUTH: Oropharynx is normal. NECK: No adenopathy, no JVD. CHEST: Chest with diminished breath sounds bilaterally. No wheezes, rales, or rhonchi. CARDIAC: Regular rate and rhythm. S1 and S2, without murmurs, gallops, or rubs. VASCULAR: No Edema. Peripheral pulses normal and equal in all extremities. ABDOMEN: Soft, without detectable tenderness. No sign of distention. No rebound or guarding, and no masses palpated. Bowel Sounds normal. MUSCULOSKELETAL: Good range of motion of all major joints. Extremities without clubbing, cyanosis or edema. NEUROLOGIC EXAM: Alert and oriented x 3. No focal sensory or strength deficits. Speech normal. Follows commands. PSYCHIATRIC: Mood normal. SKIN: No rash or lesions. - Constitutional Vitals: Temp Pulse Resp BP Pulse Ox 97.9 F 54 L 20 138/71 99 02/23/18 07:34 02/23/18 10:00 02/23/18 10:00 02/23/18 07:34 02/23/18 10:00 General appearance: Present: no acute distress, well-nourished Results - Labs CBC & Chem 7: 02/23/18 12:50 02/23/18 04:54 Labs: Laboratory Last Values WBC 5.4 K/mm3 (4.5-11.0) 02/23/18 04:54 RBC 4.71 M/mm3 (3.65-5.03) 02/23/18 04:54 Hgb 12.7 gm/dl (11.8-15.2) 02/23/18 04:54 Hct 38.9 % (35.5-45.6) 02/23/18 04:54 MCV 83 fl (84-94) L 02/23/18 04:54 MCH 27 pg (28-32) L 02/23/18 04:54 MCHC 33 % (32-34) 02/23/18 04:54 RDW 14.0 % (13.2-15.2) 02/23/18 04:54 Plt Count 122 K/mm3 (140-440) L 02/23/18 04:54 Lymph % (Auto) 26.9 % (13.4-35.0) 02/23/18 04:54 Wirt % (Auto) 9.1 % (0.0-7.3) H 02/23/18 04:54 Eos % (Auto) 4.6 % (0.0-4.3) H 02/23/18 04:54 Baso % (Auto) 0.9 % (0.0-1.8) 02/23/18 04:54 Lymph # 1.5 K/mm3 (1.2-5.4) 02/23/18 04:54 Wirt # 0.5 K/mm3 (0.0-0.8) 02/23/18 04:54 Eos # 0.2 K/mm3 (0.0-0.4) 02/23/18 04:54 Baso # 0.0 K/mm3 (0.0-0.1) 02/23/18 04:54 Seg Neutrophils % 58.5 % (40.0-70.0) 02/23/18 04:54 Seg Neutrophils # 3.1 K/mm3 (1.8-7.7) 02/23/18 04:54 PT 13.7 Sec. (12.2-14.9) 02/21/18 22:21 INR 1.00 (0.87-1.13) 02/21/18 22:21 APTT 26.9 Sec. (24.2-36.6) 02/21/18 22:21 Thrombin Time 16.5 Sec. (15.1-19.6) 02/21/18 22:21 Sodium 142 mmol/L (137-145) 02/23/18 04:54 Potassium 3.5 mmol/L (3.6-5.0) L 02/23/18 04:54 Chloride 100.4 mmol/L (98-107) 02/23/18 04:54 Carbon Dioxide 29 mmol/L (22-30) 02/23/18 04:54 Anion Gap 16 mmol/L 02/23/18 04:54 BUN 5 mg/dL (9-20) L 02/23/18 04:54 Creatinine 0.6 mg/dL (0.8-1.5) L 02/23/18 04:54 Estimated GFR > 60 ml/min 02/23/18 04:54 BUN/Creatinine Ratio 8 % 02/23/18 04:54 Glucose 71 mg/dL (75-100) L 02/23/18 04:54 POC Glucose 68 (70-105) L 02/23/18 06:27 Calcium 8.8 mg/dL (8.4-10.2) 02/23/18 04:54 Total Bilirubin 0.30 mg/dL (0.1-1.2) 02/21/18 22:21 AST 20 units/L (5-40) 02/21/18 22:21 ALT 14 units/L (7-56) 02/21/18 22:21 Alkaline Phosphatase 51 units/L (35-129) 02/21/18 22:21 Total Creatine Kinase 59 units/L (55-170) 02/21/18 22:21 CK-MB (CK-2) 1.5 ng/mL (0.0-4.0) 02/21/18 22:21 CK-MB (CK-2) Rel Index 2.5 (0-4) 02/21/18 22:21 Troponin T < 0.010 ng/mL (0.00-0.029) 02/21/18 22:21 Total Protein 6.8 g/dL (6.3-8.2) 02/21/18 22:21 Albumin 3.8 g/dL (3.9-5) L 02/21/18 22:21 Albumin/Globulin Ratio 1.3 % 02/21/18 22:21 Triglycerides 96 mg/dL (2-149) 02/23/18 04:54 Cholesterol 161 mg/dL (50-199) 02/23/18 04:54 LDL Cholesterol Direct 97 mg/dL (50-130) 02/23/18 04:54 HDL Cholesterol 61 mg/dL (40-59) H 02/23/18 04:54 Cholesterol/HDL Ratio 2.63 % 02/23/18 04:54 Urine Color Straw (Yellow) 02/21/18 23:51 Urine Turbidity Clear (Clear) 02/21/18 23:51 Urine pH 7.0 (5.0-7.0) 02/21/18 23:51 Ur Specific [place] 1.006 (1.003-1.030) 02/21/18 23:51 Urine Protein <15 mg/dl mg/dL (Negative) 02/21/18 23:51 Urine Glucose (UA) Neg mg/dL (Negative) 02/21/18 23:51 Urine Ketones Neg mg/dL (Negative) 02/21/18 23:51 Urine Blood Neg (Negative) 02/21/18 23:51 Urine Nitrite Neg (Negative) 02/21/18 23:51 Urine Bilirubin Neg (Negative) 02/21/18 23:51 Urine Urobilinogen < 2.0 mg/dL (<2.0) 02/21/18 23:51 Ur Leukocyte Esterase Neg (Negative) 02/21/18 23:51 Urine WBC (Auto) < 1.0 /HPF (0.0-6.0) 02/21/18 23:51 Urine RBC (Auto) < 1.0 /HPF (0.0-6.0) 02/21/18 23:51 Urine Opiates Screen Presumptive negative 02/21/18 23:51 Urine Methadone Screen Presumptive negative 02/21/18 23:51 Ur Barbiturates Screen Presumptive negative 02/21/18 23:51 Ur Phencyclidine Scrn Presumptive negative 02/21/18 23:51 Ur Amphetamines Screen Presumptive negative 02/21/18 23:51 U Benzodiazepines Scrn Presumptive negative 02/21/18 23:51 Urine Cocaine Screen Presumptive negative 02/21/18 23:51 U Marijuana (THC) Screen Presumptive negative 02/21/18 23:51 Drugs of Abuse Note Disclamer 02/21/18 23:51 - Imaging and Cardiology Imaging and Cardiology: Discussed with cardiology patient has a large left ventricular thrombosis
[2018-02-23] MEDS ORDERED: HEPARIN/ 0.45% NACL-25,000 UNIT/500 ML 25,000 UNIT/500 ML BAG IV SCH (12:00)
[2018-02-23 12:51] VITALS: BP 171/77
[2018-02-23 13:45] LABS: Hematocrit 40.2 % (35.5-45.6); Hemoglobin 12.8 gm/dl (11.8-15.2)
[2018-02-23 13:57] LABS: INR 0.98 (0.87-1.13)
[2018-02-23 13:58] LABS: Partial Thromboplastin Time 29.8 Sec. (24.2-36.6)
--- NOTE | 2018-02-23 13:59 | Consultation ---
History of Present Illness Consult date: 02/23/18 Consult reason: other (left ventricular mural thrombus on echocardiogram) History of present illness: The patient is a 72-year-old man who presented to this hospital with suspected TIA. An echocardiogram was done and were asked to review this study. The echo showed a dilated cardiomyopathy, ejection fraction 15-20%, evidence of a prior large LAD territory infarct with akinesis of the mid and distal anterior wall and apex. Most significantly, there was a large, laminated mural thrombosis within the akinetic anterior wall and apex. Cardiologic consultation was requested. 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 His regular flatwork catcher is Dr. Blanton at [facility]. Prior to the finding of the LV thrombus, he had suffered an anterior myocardial infarction and treated with coronary stent. I inquired about oral anticoagulation, saying that he is currently not taking anticoagulation therapy. He states that he was initially placed on Coumadin and for unclear reasons this was switched to Plavix, which he now takes. He adds that he never wants to take Coumadin therapy again because of the associated dietary restrictions. Prior to this presentation, my review of his chart shows that she was hospitalized at this hospital 8 months ago with another cerebrovascular accident at the time. His echocardiogram at that time also reported the left ventricular mural thrombus, but it is uncertain whether oral anticoagulation therapy was addressed in response to this. No cardiology input was requested at that time. The patient currently is comfortable, no chest pain, no shortness of breath, no orthopnea and no edema. There are no palpitations. His cardiac status is otherwise asymptomatic. EKG is sinus rhythm with intermittent PVCs and nonspecific ST and T-wave abnormalities. Past History Past Medical History: acute MS, CAD, diabetes, heart failure, hypertension, hyperlipidemia, seizures, stroke Past Surgical History: PTCA Social history: no significant social history Family history: hypertension Medications and Allergies Allergies Allergy/AdvReac Type Severity Reaction Status Date / Time iodine AdvReac Unknown Verified 06/26/17 09:37 Home Medications Medication Instructions Recorded Confirmed Last Taken Type Aspirin [Adult Low Dose Aspirin EC] 81 mg PO DAILY #30 tablet. 02/23/18 Unknown Rx Pantoprazole [Protonix TAB] 40 mg PO QDAY #30 tablet 02/23/18 Unknown Rx Rivaroxaban [Xarelto] 10 mg PO QDAY #30 tab 02/23/18 Unknown Rx Simvastatin [Zocor TAB] 40 mg PO QHS #30 tablet 02/23/18 02/22/18 Unknown Rx levETIRAcetam [Keppra TAB] 750 mg PO BID #60 tablet 02/23/18 Unknown Rx Active Meds: Active Medications Acetaminophen (Tylenol) 650 mg PO Q4H PRN PRN Reason: Pain MILD(1-3)/Fever >100.5/JULIEN Aspirin (Aspirin) 325 mg PO QDAY [facility] Last Admin: 02/23/18 10:35 Dose: 325 mg Bisacodyl (Dulcolax) 10 mg HI QDAY PRN PRN Reason: Constipation Heparin Sodium/Sodium Chloride (Heparin/ 0.45% Nacl-25,000 Unit/500 Ml) 25,000 unit in 500 mls @ 18 mls/hr IV TITR [facility]; Protocol Levetiracetam (Keppra) 500 mg PO BID [facility] Last Admin: 02/23/18 10:35 Dose: 500 mg Lorazepam (Ativan) 2 mg IV Q4H PRN PRN Reason: Seizures Last Admin: 02/22/18 14:10 Dose: 2 mg Magnesium Hydroxide (Milk Of Magnesia) 30 ml PO Q4H PRN PRN Reason: Constipation Ondansetron HCl (Zofran) 4 mg IV Q8H PRN PRN Reason: Nausea And Vomiting Pravastatin Sodium (Pravachol) 80 mg PO QHS [facility] Last Admin: 02/22/18 22:42 Dose: 80 mg Sodium Chloride (Sodium Chloride Flush Syringe 10 Ml) 10 ml IV BID [facility] Last Admin: 02/23/18 10:36 Dose: 10 ml Sodium Chloride (Sodium Chloride Flush Syringe 10 Ml) 10 ml IV PRN PRN PRN Reason: LINE FLUSH Warfarin Sodium (Coumadin Pharmacy To Dose) 1 each PO PKCONSULT [facility]; Protocol Warfarin Sodium (Coumadin) 5 mg PO DAILY@1700 [facility] Review of Systems Cardiovascular: no chest pain, no orthopnea, no palpitations, no rapid/ irregular heart beat, no edema, no syncope, no lightheadedness, no shortness of breath Physical Examination Vital Signs BP Pulse Ox 188/92 99 02/21/18 21:35 02/21/18 21:35 General appearance: no acute distress HEENT: Positive: PERRL Neck: Positive: neck supple Cardiac: Positive: Reg Rate and Rhythm Lungs: Positive: Decreased Breath Sounds Neuro: Positive: Grossly Intact Abdomen: Positive: Soft Male genitourinary: Positive: deferred Skin: Positive: Clear Extremities: Absent: edema Results 02/23/18 12:50 02/23/18 04:54 Lipids 02/23/18 Range/Units 04:54 Triglycerides 96 (2-149) mg/dL Cholesterol 161 (50-199) mg/dL HDL Cholesterol 61 H (40-59) mg/dL Cholesterol/HDL Ratio 2.63 % CBC 02/23/18 02/23/18 Range/Units 04:54 12:50 WBC 5.4 (4.5-11.0) K/mm3 RBC 4.71 (3.65-5.03) M/mm3 Hgb 12.7 12.8 (11.8-15.2) gm/dl Hct 38.9 40.2 (35.5-45.6) % Plt Count 122 L 129 L (140-440) K/mm3 Lymph # 1.5 (1.2-5.4) K/mm3 [place] # 0.5 (0.0-0.8) K/mm3 Eos # 0.2 (0.0-0.4) K/mm3 Baso # 0.0 (0.0-0.1) K/mm3 Comprehensive Metabolic Panel 02/23/18 Range/Units 04:54 Sodium 142 (137-145) mmol/L Potassium 3.5 L (3.6-5.0) mmol/L Chloride 100.4 (98-107) mmol/L Carbon Dioxide 29 (22-30) mmol/L BUN 5 L (9-20) mg/dL Creatinine 0.6 L (0.8-1.5) mg/dL Glucose 71 L (75-100) mg/dL Calcium 8.8 (8.4-10.2) mg/dL EKG interpretations - Telemetry EKG Rhythm: Sinus Rhythm Assessment and Plan - Patient Problems (1) Left ventricular mural thrombus Current Visit: Yes Status: Acute Plan to address problem: The patient has a dilated ischemic cardiomyopathy, with severe left ventricle systolic dysfunction, and a persistent large left ventricular mural thrombus. In addition, there is recurrent presentations with embolic CVA. I have strongly recommended that he resumes Coumadin therapy, with a target INR of 2.0-3.0. He is fully aware that level and blood thrombus puts him at very high risk of recurrent cardiac thromboembolism. He adamantly refuses Coumadin all other anticoagulation therapy. He wants to be maintained on Plavix alone.
[2018-02-23] MEDS ORDERED: K-DUR PO SCH (15:00)
[2018-02-23] MEDS ORDERED: LASIX PO SCH (15:00)
[2018-02-23] MEDS ORDERED: COREG PO SCH (15:00)
[2018-02-23] MEDS ORDERED: ZESTRIL PO SCH (15:00)
[2018-02-23] MEDS ORDERED: COUMADIN PO SCH ×2 (17:00)
--- NOTE | 2018-02-24 18:55 | Discharge Summary ---
Providers - Providers Date of Admission: 02/22/18 03:01 Attending physician: VALERIO BARBER MD 02/22/18 Consult to Physician [CONS] Routine Comment: Consulting Provider: MARLENA ISAAC Physician Instructions: Reason For Exam: visual disturbnce 02/22/18 03:05 Occupational Therapy Evaluate and Treat [CONS] Routine Comment: Reason For Exam: Neuro deficits Physical Therapy Evaluation and Treat [CONS] Routine Comment: Reason For Exam: Neuro deficits 02/23/18 11:39 Consult to Physician [CONS] Routine Comment: Consulting Provider: KURT SALEEM Physician Instructions: Reason For Exam: thrombus Primary care physician: [employer] Hospitalization Condition: Stable Hospital course: patient is a 72 year old man with history of CVA, seizure, hypertension, diabetes comes to the ER for evaluation of vision loss per the ER doctor. The patient came in as a code stroke and after CT head, he was noted to have a seizure. he was given 4mg ativan and 5 mg versed. he is now sedated. Neurology was consulted, imaging studies showed encephalomalecia, echocardiogram revealed large left ventricular mural thrombus. patient was advised of the finding and started on Heparin drip bridge with coumadin therapy Seizure, acute on chronic Acute toxic encephalopathy Dilated Cardiomyopathy- EF 15-20% Large LV thrombus CAD hx of HI with stent Hypertension Diabetes Thrombocytopenia Plan Per cardiology documentation and explained to the patient "The patient has a dilated ischemic cardiomyopathy, with severe left ventricle systolic dysfunction, and a persistent large left ventricular mural thrombus. In addition, there is recurrent presentations with embolic CVA. I have strongly recommended that he resumes Coumadin therapy, with a target INR of 2.0-3.0. He is fully aware that level and blood thrombus puts him at very high risk of recurrent cardiac thromboembolism. He adamantly refuses Coumadin all other anticoagulation therapy. He wants to be maintained on Plavix alone." pATIENT LEFT AMA Disposition: DC-07 LEFT AGAINST MED ADVICE Core Measure Documentation - Palliative Care Palliative Care/ Comfort Measures: Not Applicable - Core Measures Any of the following diagnoses?: none - VTE Discharge Requirements Deep Vein Thrombosis/Pulmonary Embolism Present on Admission: No Exam - Constitutional Vitals: Temp Pulse Resp BP Pulse Ox 98.4 F 52 L 20 171/77 100 02/23/18 12:20 02/23/18 13:00 02/23/18 12:20 02/23/18 12:20 02/23/18 12:20 Plan Follow up with: PRIMARY CARE, [Primary Care Provider] - 3-5 Days ROSALIND EUCEAD MD [Staff Physician] - 7 Days Forms: AMA Form Prescriptions: Aspirin [Adult Low Dose Aspirin EC] 81 mg PO DAILY #30 tablet. levETIRAcetam [Keppra TAB] 750 mg PO BID #60 tablet Pantoprazole [Protonix TAB] 40 mg PO QDAY #30 tablet Rivaroxaban [Xarelto] 10 mg PO QDAY #30 tab
== END 2018-02-23 18:10 | disposition left against medical advice (07) | DRG 100 ==
LOC: ED 21:21 → 4A 02-22 03:01
PROVIDERS: ADMIT Internal Medicine; ATTEND Internal Medicine
DX: G40.109 Localization-related (focal) (partial) symptomatic epilepsy and epileptic syndromes with simple partial seizures, not intractable, without status epilepticus (principal); G92 Toxic encephalopathy; I42.0 Dilated cardiomyopathy; I24.0 Acute coronary thrombosis not resulting in myocardial infarction; H53.9 Unspecified visual disturbance; I10 Essential (primary) hypertension; E11.9 Type 2 diabetes mellitus without complications; D69.6 Thrombocytopenia, unspecified; G93.89 Other specified disorders of brain; I25.5 Ischemic cardiomyopathy; Z82.49 Family history of ischemic heart disease and other diseases of the circulatory system; Z91.041 Radiographic dye allergy status; Z79.82 Long term (current) use of aspirin; Z79.899 Other long term (current) drug therapy; Z86.73 Personal history of transient ischemic attack (TIA), and cerebral infarction without residual deficits; Z95.5 Presence of coronary angioplasty implant and graft; I25.2 Old myocardial infarction; R29.702 NIHSS score 2
CPT/HCPCS: 36415; 70450; 70496; 70498; 70551; 71045; 80048; 80053; 80061; 80307; 81001; 82550; 82553; 82962; 84484; 85014; 85018; 85025; 85049; 85610; 85670; 85730; 87086; 93005; 93010; 93306; 94760; A9270-GY; G8978-GP; G8979-GP; G8988-GO; G8989-GO; J1644; J1953; J2060; J2250; J7050; Q9967

== ENCOUNTER 2018-02-24 08:15 | Emergency (ER) | payer MEDICARE, OTHER ==
[2018-02-24 09:13] LABS: Basophils % (Auto) 0.5 % (0.0-1.8); Eosinophils # (Auto) 0.1 K/mm3 (0.0-0.4); Eosinophils % (Auto) 1.8 % (0.0-4.3); Hematocrit 41.1 % (35.5-45.6); Hemoglobin 13.5 gm/dl (11.8-15.2); Lymphocytes # (Auto) 0.8 K/mm3 (1.2-5.4); Lymphocytes % (Auto) 12.5 % (13.4-35.0); Mean Corpuscular HGB Conc 33 % (32-34); Mean Corpuscular Hemoglobin 27 pg (28-32); Mean Corpuscular Volume 82 fl (84-94); Monocytes # (Auto) 0.5 K/mm3 (0.0-0.8); Monocytes % (Auto) 6.9 % (0.0-7.3); Platelet Count 124 K/mm3 (140-440)
[2018-02-24] MEDS ORDERED: KEPPRA 1,000 MG/NS 0.75% 100ML 1,000 MG/100 ML BAG IV ONE (09:20)
[2018-02-24 09:44] LABS: INR 0.96 (0.87-1.13)
[2018-02-24 09:45] LABS: Partial Thromboplastin Time 27.5 Sec. (24.2-36.6)
--- NOTE | 2018-02-24 09:58 | Cat Scan Report ---
CT scan of head without IV contrast: Compare to 02/21/18 and 02/22/18. History: Headache. Findings: Ventricles are normal in size and midline in location. Periventricular area of low attenuation. Chronic right temporal parietal infarct without significant interval change. There is right parietal subdural with maximum diameter 5 mm. No midline shift. Impression: Chronic right temporal infarct. New right temporoparietal subdural measuring [address] width[address] Weathers was informed of the findings at 9:40 AM on 02/24/18. CodePurple.
--- NOTE | 2018-02-24 10:00 | XRay Report ---
Single view chest: Compared to 02/21/18. History: Hypertension. Findings: Normal cardiomediastinal silhouette. Trachea is midline. No consolidation, pneumothorax or pleural effusion. Impression: No acute cardiopulmonary findings.
[2018-02-24 10:26] LABS: BUN/Creatinine Ratio 6; Blood Urea Nitrogen 5 mg/dL (9-20); Calcium 9.5 mg/dL (8.4-10.2); Hemolysis Index 6
--- NOTE | 2018-02-24 10:30 | Emergency Department Report ---
ED General Adult HPI - General Chief complaint: Dizziness Stated complaint: FALL/LOC Time Seen by Provider: 02/24/18 09:05 Source: patient, EMS Mode of arrival: Stretcher Limitations: No Limitations - History of Present Illness Initial comments: This is a 72 year old male with a complex medical history and recent hospitalization. He has a left mural thrombus and AICD has been recommended. He was in the hospital recently with visual change and seizures. It appears that Coumadin was recommended and that heparin may have been ordered during hospitalization program to discharging hospitalist.. There is some question as to previous prescription for Xarelto However, review of 3 PT PTT INR profiles indicate that the patient was never anticoagulated at the time of these exams to include today. In any case, the patient was having what appeared to be having intermittent left focal seizures with left conjugate gaze deviation on my initial encounter. During these brief episodes of shaking, he would ask what is happening to me. He was completely awake and alert even with a conjugate gaze deviation present. In fact he did not have an attention of his left side. He was also able to look to the right but not the extreme right. He was able to tell me that he did not take his Keppra today. He also stated that he has previously been on medicines like Xanax and Ativan. The patient reported no headache and no chest pain. Patient had no fever or chills. He denied any shortness of breath or cough. He did refer some weakness and dizziness. He did not report any injury. -: hour(s) Severity scale (0 -10): 0 Consistency: intermittent Improves with: none Worsens with: none Associated Symptoms: denies other symptoms Treatments Prior to Arrival: other (recent hospitalization) - Related Data Previous Rx's Medication Instructions Recorded Last Taken Type Aspirin [Adult Low Dose Aspirin EC] 81 mg PO DAILY #30 tablet. 02/23/18 Unknown Rx Pantoprazole [Protonix TAB] 40 mg PO QDAY #30 tablet 02/23/18 Unknown Rx Rivaroxaban [Xarelto] 10 mg PO QDAY #30 tab 02/23/18 Unknown Rx Simvastatin [Zocor TAB] 40 mg PO QHS #30 tablet 02/23/18 Unknown Rx levETIRAcetam [Keppra TAB] 750 mg PO BID #60 tablet 02/23/18 Unknown Rx Allergies Allergy/AdvReac Type Severity Reaction Status Date / Time iodine AdvReac Unknown Verified 06/26/17 09:37 ED Review of Systems ROS: Stated complaint: FALL/LOC Other details as noted in HPI Constitutional: denies: chills, fever Eyes: denies: eye pain, eye discharge, vision change ENT: denies: ear pain, throat pain Respiratory: denies: cough, shortness of breath, wheezing Cardiovascular: denies: chest pain, palpitations Endocrine: no symptoms reported Gastrointestinal: denies: abdominal pain, nausea, diarrhea Genitourinary: denies: urgency, dysuria Musculoskeletal: denies: back pain, joint swelling, arthralgia Skin: denies: rash, lesions Neurological: denies: headache, weakness, paresthesias Psychiatric: denies: anxiety, depression Hematological/Lymphatic: denies: easy bleeding, easy bruising ED Past Medical Hx - Past Medical History Hx Hypertension: Yes Hx CVA: Yes Hx Diabetes: Yes - Surgical History Hx Coronary Stent: Yes Additional Surgical History: Right leg, cardiac stent - Social History Smoking Status: Never Smoker - Medications Home Medications: Home Medications Medication Instructions Recorded Confirmed Last Taken Type Aspirin [Adult Low Dose Aspirin EC] 81 mg PO DAILY #30 tablet. 02/23/18 Unknown Rx Pantoprazole [Protonix TAB] 40 mg PO QDAY #30 tablet 02/23/18 Unknown Rx Rivaroxaban [Xarelto] 10 mg PO QDAY #30 tab 02/23/18 Unknown Rx Simvastatin [Zocor TAB] 40 mg PO QHS #30 tablet 02/23/18 02/22/18 Unknown Rx levETIRAcetam [Keppra TAB] 750 mg PO BID #60 tablet 02/23/18 Unknown Rx ED Physical Exam - General Limitations: Physical Limitation General appearance: alert, in no apparent distress - Head Head exam: Present: atraumatic, normocephalic - Eye Eye exam: Present: normal appearance - ENT ENT exam: Present: mucous membranes moist - Neck Neck exam: Present: normal inspection. Absent: tenderness, meningismus - Respiratory Respiratory exam: Present: normal lung sounds bilaterally. Absent: respiratory distress - Cardiovascular Cardiovascular Exam: Present: regular rate, normal rhythm. Absent: systolic murmur, diastolic murmur, rubs, gallop - GI/Abdominal GI/Abdominal exam: Present: soft, normal bowel sounds. Absent: distended, tenderness, guarding, rebound, rigid - Rectal Rectal exam: Present: deferred - Extremities Exam Extremities exam: Present: normal inspection - Back Exam Back exam: Present: normal inspection - Neurological Exam Neurological exam: Present: alert, oriented X3, other (intermittent left focal upper and lower limb tonic clonic movements, left conjugate gaze deviation. In between episodes NIH stroke score is 0) - Psychiatric Psychiatric exam: Present: normal mood, flat affect - Skin Skin exam: Present: warm, dry, intact, normal color. Absent: rash ED Course Vital Signs 02/24/18 02/24/18 09:12 09:13 Temperature 98.2 F Pulse Rate 67 Respiratory 12 12 Rate Blood Pressure 109/88 [Left] O2 Sat by Pulse 96 96 Oximetry - Reevaluation(s) Reevaluation #1: I discussed the case management with the discharging hospitalist. The patient was found to have a new small thickness right parietal subdural hematoma. There is no edema. There is no midline shift. We have requested transfer to [place]. The patient was given Keppra. His medical records including all recent imaging studies are being transferred to . I am awaiting a call back from her neurologist at [facility]. 02/24/18 10:31 02/24/18 10:33 Reevaluation #2: I spoke with neurology at [facility]. I am anticipating transfer now. 02/24/18 10:59 ED Medical Decision Making - Lab Data Result diagrams: 02/24/18 08:49 02/24/18 08:49 Laboratory Results - last 24 hr 02/24/18 02/24/18 02/24/18 08:49 08:49 08:49 WBC 6.8 RBC 5.00 Hgb 13.5 Hct 41.1 MCV 82 L MCH 27 L MCHC 33 RDW 14.0 Plt Count 124 L Lymph % (Auto) 12.5 L [place] % (Auto) 6.9 Eos % (Auto) 1.8 Baso % (Auto) 0.5 Lymph # 0.8 L [place] # 0.5 Eos # 0.1 Baso # 0.0 Seg Neutrophils % 78.3 H Seg Neutrophils # 5.3 PT 13.3 INR 0.96 APTT 27.5 Thrombin Time Sodium 140 Potassium 3.7 Chloride 99.5 Carbon Dioxide 26 Anion Gap 18 BUN 5 L Creatinine 0.9 Estimated GFR > 60 BUN/Creatinine Ratio 6 Glucose 106 H POC Glucose Calcium 9.5 Troponin T < 0.010 02/24/18 02/24/18 08:49 09:11 WBC RBC Hgb Hct MCV MCH MCHC RDW Plt Count Lymph % (Auto) [place] % (Auto) Eos % (Auto) Baso % (Auto) Lymph # [place]itus # Eos # Baso # Seg Neutrophils % Seg Neutrophils # PT INR APTT Thrombin Time 15.1 Sodium Potassium Chloride Carbon Dioxide Anion Gap BUN Creatinine Estimated GFR BUN/Creatinine Ratio Glucose POC Glucose 103 Calcium Troponin T - EKG Data -: EKG Interpreted by Me (still pending) - Radiology Data Radiology results: report reviewed Chest x-ray no acute process CT head showed chronic right temporal infarct. Right temporoparietal subcutaneous dural hematoma 5 mm in maximum width. No edema or midline shift. Critical Care Time: Yes Critical care time in (mins) excluding proc time.: 90 Critical care attestation.: If time is entered above; I have spent that time in minutes in the direct care of this critically ill patient, excluding procedure time. ED Disposition Clinical Impression: Subdural hematoma, Cardiomyopathy Disposition: DC/TX-70 ANOTHER TYPE HLTHCARE Is pt being admited?: Yes Does the pt Need Aspirin: No Condition: Stable Referrals: PRIMARY CARE, [Primary Care Provider] - 3-5 Days Time of Disposition: 10:38
[2018-02-24] MEDS ORDERED: ATIVAN IV ONE (11:30)
[2018-02-24 12:21] VITALS: BP 157/90
== END 2018-02-24 14:33 | disposition other institution (70) ==
LOC: ED 08:15
DX: I62.00 Nontraumatic subdural hemorrhage, unspecified (principal); I42.9 Cardiomyopathy, unspecified; I10 Essential (primary) hypertension; E11.9 Type 2 diabetes mellitus without complications; Z86.73 Personal history of transient ischemic attack (TIA), and cerebral infarction without residual deficits; Z79.82 Long term (current) use of aspirin; Z88.8 Allergy status to other drugs, medicaments and biological substances
CPT/HCPCS: 36415; 70450; 71045; 80048; 82962; 84484; 85025; 85610; 85670; 85730; 93005; 93010; 96365; 96375; 99291; 99292; J1953; J2060; 99285